=== PATIENT | female | born 1960 | race Caucasian/White ===

== ENCOUNTER → 2024-07-21 12:56 | Outpatient (REF) | payer BC, SELFPAY | LOC: RCS 12:56 | PROVIDERS: ATTENDING PHYSICIAN Internal Medicine Cardiovascular Disease; FAMILY PHYSICIAN Physician Assistant Medical | DX: I48.0 Paroxysmal atrial fibrillation (principal); R94.31 Abnormal electrocardiogram [ECG] [EKG]; I10 Essential (primary) hypertension | CPT/HCPCS: 93306; Q9950 ==